=== PATIENT | male | born 1995 | race Caucasian/White ===

== ENCOUNTER 2018-08-19 18:57 | Emergency (ER) | payer BC ==
[2018-08-19 19:24] VITALS: BP 137/74
--- NOTE | 2018-08-19 19:47 | UC ---
Rectal Pain HPI - HPI Summary HPI Summary: 23 year old male presents with 2 week history of bright red blood per rectum with bowel movement. States he had a similar episode about 1 year ago that was intermittent and only lasted a few days. State he is noticing a small amount of blood on the stool, in the toilet, and when he wipes. Having daily formed, brown , BMs. Occasionally hard in consistency. Denies fever, chills, dizziness, lightheadedness, chest pain, palpitations, shortness of breath, abdominal pain, nausea, vomiting, diarrhea, or unintentional weight loss. Mother with history of colon cancer, Father with Crohn's. - History Of Current Complaint Chief Complaint: UCGI Stated Complaint: BLOOD IN STOOL Time Seen by Provider: 08/19/18 19:30 Hx Obtained From: Patient Onset/Duration: Lasting Weeks - 2 Severity Currently: None Pain Intensity: 0 Aggravating Factor(s): Bowel Movement Associated Signs And Symptoms: Positive: Bright Red Blood w/Stool. Negative: Blood W/O Stool - Allergies/Home Medications Allergies/Adverse Reactions: Allergies Allergy/AdvReac Type Severity Reaction Status Date / Time No Known Allergies Allergy Verified 08/19/18 19:24 Home Medications: Home Medications NK [No Home Medications Reported] 08/19/18 [History Confirmed 08/19/18] PMH/Surg Hx/FS Hx/Imm Hx Previously Healthy: Yes - Denies significant PMH - Surgical History Surgical History: None - Family History Family History: Mother diagnosed with colon cancer, father with Crohns. - Social History Occupation: Employed Full-time Lives: With Family Alcohol Use: Rare Substance Use Type: None Smoking Status (MU): Never Smoked Tobacco Review of Systems All Other Systems Reviewed And Are Negative: Yes Constitutional: Negative: Fever, Chills Respiratory: Negative: Shortness Of Breath Cardiovascular: Negative: Palpitations, Chest Pain Gastrointestinal: Positive: Other - See HPI. Negative: Abdominal Pain, Vomiting , Diarrhea, Nausea Is Patient Immunocompromised?: No Physical Exam - Summary Physical Exam Summary: GENERAL APPEARANCE: Well developed, well nourished, alert and cooperative, and appears to be in no acute distress. CARDIAC: Normal S1 and S2. No S3, S4 or murmurs. Rhythm is regular. There is no peripheral edema, cyanosis or pallor. Extremities are warm and well perfused. Capillary refill is less than 2 seconds. LUNGS: Clear to auscultation and percussion without rales, rhonchi, wheezing or diminished breath sounds. ABDOMEN: Positive bowel sounds. Soft, nondistended, nontender. No guarding or rebound. No masses or hepatosplenomegally. RECTAL: Anus normal with no blood or external hemorrhoids noted. Good sphincter tone. No internal hemorrhoids or masses noted. No shaina blood. MUSKULOSKELETAL: ROM intact to all extremities. Normal muscular development. Normal gait. EXTREMITIES: No edema. Peripheral pulses intact. SKIN: Skin normal color, texture and turgor with no lesions or eruptions. Triage Information Reviewed: Yes Vital Signs: Initial Vital Signs Temp 98.4 F 08/19/18 19:19 Pulse 57 08/19/18 19:19 Resp 16 08/19/18 19:19 BP 137/74 08/19/18 19:19 Pulse Ox 100 08/19/18 19:19 Vital Signs Reviewed: Yes Rectal Pain Course/Dx - Course Course Of Treatment: 23 year old male presents with 2 week history of bright red blood per rectum with bowel movement. States he had a similar episode about 1 year ago that was intermittent and only lasted a few days. State he is noticing a small amount of blood on the stool, in the toilet, and when he wipes. Having daily formed, brown, BMs. Occasionally hard in consistency. Denies fever, chills, dizziness, lightheadedness, chest pain, palpitations, shortness of breath, abdominal pain, nausea, vomiting, diarrhea, or unintentional weight loss. Mother with history of colon cancer, Father with Crohn's. Afebrile. VSS. Exam was unremakable. I suspect that the bleeding is from an anal fissure however with his family history will refer to gastroenterology for further evaluation. Recommending high fiber diet, fiber supplementation, and stool softener. Warning symptoms were discussed with the patient. Verbalizes understanding and agrees with POC. - Differential Dx/Diagnosis Differential Diagnosis/HQI/PQRI: Hemorrhoid(s), Rectal Fissure, Rectal Polyps Provider Diagnosis: Bright red blood per rectum Discharge - Sign-Out/Discharge Documenting (check all that apply): Patient Departure All imaging exams completed and their final reports reviewed: No Studies - Discharge Plan Condition: Stable Disposition: HOME Patient Education Materials: Rectal Bleeding (ED) Referrals: No Primary Care Phys,NOPCP [Primary Care Provider] - Leona Borja MD [Medical Doctor] - 7 Days (Call for appointment) Additional Instructions: I suspect that your symptoms are from an anal fissure which can occur if you strain with bowel movements or have hard stool. Eat a high fiber diet and drink plenty of fluids. I would also recommend that you start using a fiber supplement such as Metamucil or Citrucel daily according to directions. You can also use an over the counter stool softener such as docusate sodium ( Colace) 1 capsule daily to help soften the stool. With your family history I have made a referral for you to see Dr. Borja, gastroenterology, for further evaluation and treatment. Seek immediate medical attention in the emergency room if you develop fever greater than 100.5 F, severe abdominal pain, large amount of blood or multiple episodes of rectal bleeding, or any worsening of symptoms. - Billing Disposition and Condition Condition: STABLE Disposition: Home
== END 2018-08-19 19:57 | disposition home or self-care (01) ==
LOC: UCCORT 18:57
DX: K62.5 Hemorrhage of anus and rectum (principal)
CPT/HCPCS: 99201; G0463